=== PATIENT | male | born 1975 | race Caucasian/White ===

== ENCOUNTER 2018-04-27 11:40 | Emergency (ER) | payer SELFPAY ==
[~2018-04-27] VITALS: Ht 175.3 cm; Wt 77.0 kg
== END 2018-04-27 12:37 | disposition home or self-care (01) ==
LOC: EDBD → ED 12:34 → MERGE 12:34 → ED 12:37
DX: S90.122A Contusion of left lesser toe(s) without damage to nail, initial encounter (principal); W20.8XXA Other cause of strike by thrown, projected or falling object, initial encounter; Y93.89 Activity, other specified; Y92.89 Other specified places as the place of occurrence of the external cause; Y99.8 Other external cause status
CPT/HCPCS: 99284